=== PATIENT | male | born 1975 | race Caucasian/White ===

== ENCOUNTER 2021-11-02 02:05 | Emergency (ER) | payer OTHER ==
[2021-11-02 02:28] LABS: HEMOGLOBIN 16.7 gm/dl (14.0-17.5); RED BLOOD COUNT 5.04 M/UL (4.20-5.50); WHITE BLOOD COUNT 8.8 K/UL (4.5-11.0)
[2021-11-02 02:44] LABS: BUN/CREATININE RATIO 12 (0-10)
== END 2021-11-02 06:37 | disposition home or self-care (01) ==
LOC: ER1 02:05
PROVIDERS: Emergency Medicine
DX: S00.83XA Contusion of other part of head, initial encounter (principal); Y08.89XA Assault by other specified means, initial encounter; Y93.9 Activity, unspecified; Y92.410 Unspecified street and highway as the place of occurrence of the external cause
CPT/HCPCS: 70450; 70486; 80048; 80307; 81001; 85025; 96374; 99284; G0480; J2060

== ENCOUNTER 2022-03-18 08:52 | Emergency (ER) | payer OTHER ==
[2022-03-18 10:18] LABS: HEMOGLOBIN 15.6 gm/dl (14.0-17.5); RED BLOOD COUNT 4.89 M/UL (4.20-5.50); WHITE BLOOD COUNT 7.2 K/UL (4.5-11.0)
[2022-03-18 10:43] LABS: BUN/CREATININE RATIO 9 (0-10)
== END 2022-03-18 11:49 | disposition home or self-care (01) ==
LOC: ER1 08:52
PROVIDERS: Physician Assistant
DX: E86.0 Dehydration (principal); F10.239 Alcohol dependence with withdrawal, unspecified
CPT/HCPCS: 71045; 80053; 82550; 82553; 83690; 84484; 85025; 93005; 99285